=== PATIENT | male | born 1975 | race African-American/Black ===

== ENCOUNTER 2016-04-21 20:01 | Emergency (ER) | payer OTHER ==
[~2016-04-21] VITALS: Ht 175.3 cm; Wt 110.0 kg
[2016-04-21 20:21] VITALS: BP 150/86; PULSE 100; RESP 14; TEMP 98.1; O2SAT 100
[2016-04-21 20:38] LABS: AUTOMATED NEUTROPHIL # 8.4 TH/MM3 (1.8-7.7); BASOPHIL % 0.3 % (0.0-2.0); EOSINOPHIL # 0.1 TH/MM3 (0-0.4); EOSINOPHIL % 0.6 % (0.0-4.0); HEMATOCRIT 42.5 % (39.0-51.0); HEMO FLAGS DIFF FINAL; LYMPHOCYTE # 1.3 TH/MM3 (1.0-4.8); MEAN CELL VOLUME 82.3 FL (80.0-100.0); MEAN CORPUSCULAR HEMOGLOBIN 26.7 PG (27.0-34.0); MEAN CORPUSCULAR HGB CONC 32.5 % (32.0-36.0); MONO % 7.1 % (0.0-8.0); PLATELET COUNT 286 TH/MM3 (150-450); RED BLOOD COUNT 5.17 MIL/MM3 (4.50-5.90); RED CELL DISTRIBUTION WIDTH 13.9 % (11.6-17.2); WHITE BLOOD COUNT 10.5 TH/MM3 (4.0-11.0)
--- NOTE | 2016-04-21 20:42 | PD ---
HPI Chief Complaint: Psychiatric Symptoms Time Seen by Provider: 20:27 Travel History International Travel<30 days: No Contact w/Intl Traveler<30days: No Traveled to known affect area: No History of Present Illness HPI 40-year-old male presents under Delgado act initiated by [place] [employer]. The patient reports that his and [id number]-[id number] have allowed a teenager to move into their house. He reports that the teenager has been unruly. He reports that the teenager kicked in his niece's door and this aggravated the patient. His called the police today. According to his Delgado act form the patient stated "if we leave he will arm an assault Binh Mallory... Mr. Michelle's stated that he has had mental issues in the past." The patient denies any psychiatric history. He admits to being upset at the teenager living with them but he has no specific plans to harm him or anyone else. He denies any depression. He denies any suicidal ideation. He denies any drug or alcohol use. His only medical complaint is of right hamstring pain. He reports that a few days ago in the gym he "overdid it" while running at the top speed on a treadmill. He has an aching pain in the right hamstring that is worse with flexion of the leg. He has no other complaints at this time. [facility] Past Medical History Medical History: Denies Significant Hx Tetanus Vaccination: Unknown Influenza Vaccination: No Past Surgical History Oral Surgery: Yes (WISDOM) Social History Alcohol Use: No Tobacco Use: No Substance Use: No Allergies-Medications (Allergen,Severity, Reaction): Coded Allergies: Penicillin (Verified Allergy, Unknown, 04/21/16) Reported Meds & Prescriptions Reported Meds & Active Scripts Active No Active Prescriptions or Reported Medications Review of Systems Except as stated in HPI: all other systems reviewed are Neg Physical Exam Narrative GENERAL: Well-developed well-nourished male in no acute distress SKIN: Warm and dry. HEAD: Atraumatic. Normocephalic. EYES: Pupils equal and round. No scleral icterus. No injection or drainage. ENT: No nasal bleeding or discharge. Mucous membranes pink and moist. NECK: Trachea midline. No JVD. CARDIOVASCULAR: Regular rate and rhythm. No murmur appreciated. RESPIRATORY: No accessory muscle use. Clear to auscultation. Breath sounds equal bilaterally. GASTROINTESTINAL: Abdomen soft, non-tender, nondistended. MUSCULOSKELETAL: No obvious deformities. There is some tenderness to palpation to the right hamstring musculature. The patient has pain with flexion of the right leg. The patient has no pain with extension of the right leg. He has no tenderness to palpation of the bony elements of the right leg. NEUROLOGICAL: Awake and alert. No obvious cranial nerve deficits. Motor grossly within normal limits. Normal speech. PSYCHIATRIC: Insight and judgment appear intact. The patient appears somewhat aggravated and irritated by the surrounding circumstances. Data Data Last Documented VS Vital Signs Date Time Temp Pulse Resp B/P Pulse Ox O2 Delivery O2 Flow Rate FiO2 04/21/16 20:24 100 16 04/21/16 20:21 98.1 150/86 100 Orders Complete Blood Count With Diff (04/21/16 20:19) Comprehensive Metabolic Panel (04/21/16 20:19) Drug Screen, Random Urine (04/21/16 20:19) Alcohol (Ethanol) (04/21/16 20:19) Psych Screen (04/21/16 20:19) Labs Laboratory Tests Test 04/21/16 20:20 White Blood Count 10.5 TH/MM3 Red Blood Count 5.17 MIL/MM3 Hemoglobin 13.8 GM/DL Hematocrit 42.5 % Mean Corpuscular Volume 82.3 FL Mean Corpuscular Hemoglobin 26.7 PG Mean Corpuscular Hemoglobin 32.5 % Concent Red Cell Distribution Width 13.9 % Platelet Count 286 TH/MM3 Mean Platelet Volume 8.0 FL Neutrophils (%) (Auto) 80.0 % Lymphocytes (%) (Auto) 12.0 % Monocytes (%) (Auto) 7.1 % Eosinophils (%) (Auto) 0.6 % Basophils (%) (Auto) 0.3 % Neutrophils # (Auto) 8.4 TH/MM3 Lymphocytes # (Auto) 1.3 TH/MM3 Monocytes # (Auto) 0.7 TH/MM3 Eosinophils # (Auto) 0.1 TH/MM3 Basophils # (Auto) 0.0 TH/MM3 CBC Comment DIFF FINAL Differential Comment Sodium Level 141 MEQ/L Potassium Level 4.1 MEQ/L Chloride Level 107 MEQ/L Carbon Dioxide Level 25.9 MEQ/L Anion Gap 8 MEQ/L Blood Urea Nitrogen 13 MG/DL Creatinine 1.30 MG/DL Estimat Glomerular Filtration 74 ML/MIN Rate Random Glucose 125 MG/DL Calcium Level 8.5 MG/DL Total Bilirubin 0.3 MG/DL Aspartate Amino Transf 18 U/L (AST/SGOT) Alanine Aminotransferase 34 U/L (ALT/SGPT) Alkaline Phosphatase 71 U/L Total Protein 7.7 GM/DL Albumin 3.7 GM/DL Ethyl Alcohol Level LESS THAN 3 MG/DL MDM Medical Decision Making Medical Screen Exam Complete: Yes Emergency Medical Condition: Yes Medical Record Reviewed: Yes Differential Diagnosis Adjustment reaction, acute psychosis, substance-induced disorder, intermittent explosive disorder Narrative Course 40-year-old male who was placed under Delgado act for psychiatric evaluation of agitation and hostility. On examination he has evidence of a right hamstring strain. Recommended conservative therapy including ice, rest, gradually return to normal activities. Mental health screening discussed with the patient. Psychiatric screen ordered. He is medically cleared for psychiatric disposition. Diagnosis Primary Impression: Aggression Additional Impression: Hamstring strain Qualified Code: S76.311A - Hamstring strain, right, initial encounter Scripts No Active Prescriptions or Reported Meds Vernon Santana Apr 21, 2016 20:42
[2016-04-21 21:01] LABS: ANION GAP 8 MEQ/L (5-15)
[2016-04-21 21:04] LABS: ALKALINE PHOSPHATASE 71 U/L (45-117); ALT (GPT) 34 U/L (12-78); AST (GOT) 18 U/L (15-37); BICARBONATE 25.9 MEQ/L (21.0-32.0); BLOOD UREA NITROGEN 13 MG/DL (7-18); CHLORIDE 107 MEQ/L (98-107); GLOMERULAR FILTRATION RATE 74 ML/MIN (>89); POTASSIUM 4.1 MEQ/L (3.5-5.1); SODIUM (NA) 141 MEQ/L (136-145); TOTAL BILIRUBIN ADULT 0.3 MG/DL (0.2-1.0)
[2016-04-21 21:40] LABS: AMPHETAMINE, URINE NEG (NEG); BARBITURATES, URINE NEG (NEG); COCAINE, URINE NEG (NEG)
[2016-04-21] MEDS ORDERED: IBUPROFEN 800 MG TAB PO ONE (21:45)
[2016-04-21 22:01] VITALS: BP 138/81; PULSE 86; RESP 20; TEMP 98.1; O2SAT 99
[2016-04-22 02:08] VITALS: BP 128/63; PULSE 74; RESP 18
[2016-04-22 06:31] VITALS: BP 123/68; PULSE 70; RESP 18; O2SAT 99
--- NOTE | 2016-04-22 09:46 | MB ---
cc: STEPHANY MATHIS MD DATE OF CONSULTATION: 04/22/2016 PHYSICIAN REQUESTING CONSULTATION: Emergency Department. REASON FOR CONSULTATION: Delgado Act. HISTORY OF PRESENT ILLNESS: Mr. Michelle is a 40-year-old -[place]ish male with no real reported psychiatric history, who presents under a Delgado Act from [place] [employer] alleging that the patient stated that he would harm one Javon Mallory. Reviewing the electronic medical record, I see no prior psychiatric contact within our system. The patient seen and examined. Chart reviewed. Case discussed with nurse in the J pod. There has been no evidence of any suicidal or violent behavior in the J pod. On my examination this morning, the patient presents as mildly irritable. He is frustrated with having to repeat his narrative so many times, he says. He says that Mr. Mallory is a houseguest staying in the home at the behest of his and [id number]. He says that Mr. Mallory has been behaving badly and even kicked in a door in the home. The patient says that he was understandably perturbed by this and lashed out at Mr. Mallory verbally. He denies any urge to kill Mr. Mallory and denies any homicidal ideation now. He does admit to verbally threatening Mr. Mallory. He denies any suicidal ideation. He denies any issues with low mood or elevated mood, nor can I elicit any hypomanic or manic or depressive symptoms. He denies any audiovisual hallucinations and I can elicit no delusional beliefs including but not limited to paranoia, ideas of reference, thought insertion or withdrawal or grandiosity. With the patient's permission, I did obtain collateral from the patient's [id number] Line Controller Marysol Reyes at [phone]. Ms. Reyes notes that the patient has anger outbursts with approximately yearly frequency without any clear trigger. She notes that once he has this explosive outburst he is fine afterwards. She has no concerns therefore about the patient being an ongoing risk of harm to himself or others so long as he has calmed down, which he has. She does note that he has been arrested twice in the past for domestic violence, however. She also notes that he received treatment for possibly depression in [facility] in the past. She says that patient's report of Mr. Malloyr's conduct is reality-based. Also tried to reach patient's with his permission. Left a voicemail requesting a call back. PAST PSYCHIATRIC HISTORY: The patient denies any history of formal psychiatric diagnosis or psychiatric treatment. He does say that he saw a counselor as a teenager. He says that he was treated for depression in an ambulatory setting in [facility] but that was all the way back in 1997. He denies any history of psychiatric admissions or suicide attempts. FAMILY HISTORY: The patient reports that his maternal great aunt was institutionalized. CHEMICAL DEPENDENCY HISTORY: The patient denies any history of abuse of drugs or alcohol. SOCIAL HISTORY: The patient reports that he is originally from [place]. He has 1 year of college education and works as a it security project manager at the [employer]. 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 He is but has no children. He lives with his and [id number]-[id number]-aaw and also Mr. Mallory. He notes that his and tahchy-vo-fip have firearms but he himself has none. PAST MEDICAL HISTORY: The patient denies any medical issues. REVIEW OF SYSTEMS: No reported headache, vision or hearing changes, chest pain, shortness of breath, bowel or bladder issues. PHYSICAL EXAMINATION: VITAL SIGNS: T98.1F; P 70/min; R 18/min; BP 123/68; SpO2 99% RA A physical examination was completed in the emergency room by the ER staff and the patient was medically cleared. On my examination today, the patient appears to be in no acute physical distress. No abnormal motor movements noted. LABORATORY CBC wnl CMP significant for decreased GFR and Glu 125 in non-fasting sample. Tox Neg MENTAL STATUS EXAMINATION: The patient is in hospital gown. He is well-groomed. He is awake and alert and oriented x3. No abnormal motor movements noted. Speech is within normal limits for rate, tone and volume. Language and fund of knowledge seem average for age. Mood is fair and affect is mildly irritable. Thought process linear. No loosening of associations. No evident delusions. Denies audiovisual hallucinations. Denies suicidal or homicidal ideation. Insight and judgment are fair. ASSESSMENT/PLAN: 1. Adjustment disorder with disturbance of emotions and conduct, F43.25. This is a 40-year-old -[place] male with psychiatric history as detailed above, who presents under a Delgado Act after apparently making threats towards a houseguest who had been behaving indecorously. The patient denies any suicidal or homicidal ideation at this time. I can detect no unstable mood, anxiety or psychotic disorder in this patient at this time. Collateral from the patient's [id number] seems to suggest that the patient may have some anger issues, and the patient is willing to accept a referral for outpatient counseling to ameliorate this problem. Given that there is no evidence of an unstable mental illness as defined under the Delgado Act and given that the patient is attending to his basic needs and given that the patient is denying suicidal and homicidal ideation, I senior linux administrator that the patient does not meet Delgado Act criteria at this time and I have lifted the Delgado Act. I have offered the patient a voluntary psychiatric hospitalization for observation but he has declined. I have no basis to retain this patient involuntarily at this time and so I have no choice but to recommend his discharge from a psychiatric standpoint from the ED today. We will provide the patient with appropriate referrals in the community for anger management counseling. I have also counseled the patient to return to the ED for any concerning psychiatric symptoms. Case discussed with RN. Thank you very much for this consultation. Stephany GARCIA /7:52 AM /9:22 AM T[facility]
== END 2016-04-22 10:03 | disposition home or self-care (01) ==
LOC: NEPA 20:01 → NEPJ 04-22 10:03
DX: F43.25 Adjustment disorder with mixed disturbance of emotions and conduct (principal); S76.311A Strain of muscle, fascia and tendon of the posterior muscle group at thigh level, right thigh, initial encounter; X50.0XXA Overexertion from strenuous movement or load, initial encounter; Y93.A1 Activity, exercise machines primarily for cardiorespiratory conditioning; Y92.39 Other specified sports and athletic area as the place of occurrence of the external cause; Y99.8 Other external cause status
CPT/HCPCS: 80053; 80307; 80320; 85025; 99284